=== PATIENT | male | born 1955 | race Caucasian/White ===

== ENCOUNTER 2018-11-22 06:00 | Day surgery (SDC) | payer MEDICARE ==
[~2018-11-22] VITALS: Ht 178 cm; Wt 97.1 kg
[~2018-11-22 06:00] MED LIST: ALPR1 PO; AMLO5; CLON1; CYAN1000I IM; CYCL10; CYCL10 PO; HYDCHL12.5; HYDCHL25 PO; Ketoconazole15 GM TOP; LIDO5TP TOP; METO100ER; METO100ER PO; MORP15ER PO; MORP30 PO; OXYACE10; PRED20 PO; PROM25 PO; SIMV40; VALS80
--- NOTE | 2018-11-22 08:50 | NUR ---
Patient up to Ambulate independently. Gait steady. Discharge instructions reviewed with patient. Patient verbalizes understanding. Copy given to patient to take home. Patient States Post-Procedure ride home has been arranged. Discharged via wheelchair to private car for ride home.
== END 2018-11-22 23:21 | disposition home or self-care (01) ==
LOC: ORSCMMR 06:00 → ORD 07:30 → ORSCMMR 07:30 → ORD 14:15 → ORSCMMR 14:15
PROVIDERS: Orthopaedic Surgery
PROC: 0LN80ZZ Release Left Hand Tendon, Open Approach (ICD-10-PCS; principal; 2018-11-22 07:30)
DX: M65.322 Trigger finger, left index finger (principal); I10 Essential (primary) hypertension; E78.5 Hyperlipidemia, unspecified; G47.33 Obstructive sleep apnea (adult) (pediatric); Z79.899 Other long term (current) drug therapy; Z87.891 Personal history of nicotine dependence
CPT/HCPCS: J2250; J2704; J3010; J7120

== ENCOUNTER 2018-11-30 11:53 | Emergency (ER) | payer MEDICARE ==
[~2018-11-30] VITALS: Ht 172.7 cm; Wt 97.1 kg
[2018-11-30 13:06] LABS: BASOPHILS ABSOLUTE AUTO 0.04 K/mm3 (0.00-0.23); BASOPHILS PERCENT AUTO 0 % (0-2); EOSINOPHILS PERCENT AUTO 2 % (0-6); Hematocrit 53.9 % (37.0-53.0); Hemoglobin 17.9 g/dL (13.5-17.5); IMMATURE GRAN ABSOLUTE AUTO 0.03 K/mm3 (0.00-0.10); IMMATURE GRAN PERCENT AUTO 0 % (0-1); LYMPHOCYTES ABSOLUTE AUTO 1.87 K/mm3 (0.84-5.20); LYMPHOCYTES PERCENT AUTO 16 % (21-46); MONOCYTES ABSOLUTE AUTO 0.84 K/mm3 (0.16-1.47); MONOCYTES PERCENT AUTO 7 % (4-13); Mean Corpuscular HGB 31.9 pg (26.0-34.0); Mean Corpuscular HGB Conc 33.2 g/dL (31.5-36.5); Mean Corpuscular Volume 96 fL (80-100); Mean Platelet Volume 9.7 fL (9.1-12.4); NEUTROPHILS ABSOLUTE AUTO 8.78 K/mm3 (1.96-9.15); NEUTROPHILS PERCENT AUTO 75 % (41-73); Platelet Count 237 K/mm3 (150-400); RDW Coefficient Variation 11.6 % (11.7-14.2); RDW Standard Deviation 41.7 fL (35.1-46.3); Red Blood Cell Count 5.61 M/mm3 (4.30-5.90); White Blood Cell Count 11.76 K/mm3 (4.00-11.30)
[2018-11-30 13:26] LABS: Alanine Aminotransfer (ALT/SGP 36 U/L (12-78); Albumin, Blood 4.1 g/dL (3.4-5.0); Alk Phos 103 U/L (50-136); Anion Gap 7 mmol/L (6-16); Aspartate Aminotrans (AST/SGOT 20 U/L (12-37); Bilirubin, Total 0.3 mg/dL (0.1-1.0); Blood Urea Nitrogen 8 mg/dL (8-24); Bun/Creatinine Ratio 7.7 (12.0-20.0); CO2, Blood 25 mmol/L (21-32); Calcium, Blood 9.5 mg/dL (8.5-10.1); Chloride, Blood 108 mmol/L (98-108); Creatinine, Blood 1.04 mg/dL (0.60-1.20); Globulin, Blood 4.2 g/dL (2.2-4.0); Glomerular Filtration Rate >60 (60-); Glucose, Blood 152 mg/dL (70-99); Potassium, Blood 3.8 mmol/L (3.5-5.5); Sodium, Blood 140 mmol/L (136-145); Total Protein, Blood 8.3 g/dL (6.4-8.2)
[2018-11-30 13:52] LABS: Source, Urine Clean Catch
[2018-11-30 14:05] LABS: Bilirubin, Urine Neg (Neg); Blood, Urine Neg (Neg); Glucose Qualitative, Urine Neg (Neg); Ketones, Urine Neg (Neg); Leukocyte Esterase, Urine Neg (Neg); Nitrite, Urine Neg (Neg); Protein, Urine Neg (Neg); Urobilinogen, Urine NORM (Normal)
[2018-11-30 14:48] LABS: Color, Urine Pale Yellow (P-Yellow)
[2018-11-30 14:49] LABS: Appearance, Urine Clear (Clear)
== END 2018-11-30 16:15 | disposition home or self-care (01) ==
LOC: ER 11:53
PROVIDERS: Physician Assistant
DX: R19.7 Diarrhea, unspecified (principal); R10.9 Unspecified abdominal pain; Z88.0 Allergy status to penicillin; Z79.899 Other long term (current) drug therapy; I10 Essential (primary) hypertension; Z87.891 Personal history of nicotine dependence
CPT/HCPCS: 74018; 80053; 81003; 83690; 85025; 99283-25

== ENCOUNTER 2019-01-07 13:55 | Day surgery (SDC) | payer MEDICARE ==
[~2019-01-07] VITALS: Ht 175.3 cm; Wt 96.6 kg
== END 2019-01-07 17:46 | disposition home or self-care (01) ==
LOC: ORSCSDS 13:55
PROVIDERS: Student in an Organized Health Care Education/Training Program
PROC: 0DBK8ZX Excision of Ascending Colon, Via Natural or Artificial Opening Endoscopic, Diagnostic (ICD-10-PCS; principal; 2019-01-07 15:15)
PROC: 0DBH8ZX Excision of Cecum, Via Natural or Artificial Opening Endoscopic, Diagnostic (ICD-10-PCS; principal; 2019-01-07 15:15)
DX: R15.0 Incomplete defecation (principal); R10.32 Left lower quadrant pain; D12.2 Benign neoplasm of ascending colon; D12.0 Benign neoplasm of cecum; K64.8 Other hemorrhoids; K64.4 Residual hemorrhoidal skin tags; I10 Essential (primary) hypertension; G47.33 Obstructive sleep apnea (adult) (pediatric); Z87.891 Personal history of nicotine dependence; K21.9 Gastro-esophageal reflux disease without esophagitis; Z79.899 Other long term (current) drug therapy
CPT/HCPCS: 88305; J2405; J2704; J7120

== ENCOUNTER 2021-11-26 08:57 | Day surgery (SDC) | payer MEDICARE ==
[~2021-11-26] VITALS: Ht 177.8 cm; Wt 91.8 kg
[2021-11-26] MEDS ORDERED: MORP15ER (09:37)
--- NOTE | 2021-11-26 11:00 | NUR ---
11/26/21 1100 Dusty Doan 0.15MG EPI ADDED TO 30 ML'S OF 0.5% BUPIVACAINE TO ACHIEVE SOLUTION OF 1:200,000. 8 ML'S INJ AT LEFT LONG FINGER AND 8 ML'S INJ AT RIGHT LONG FINGER BY [place].CTS AT 1050.
--- NOTE | 2021-11-26 11:47 | NUR ---
11/26/21 1147 REILLY LITTLEJOHN PT HAS A RX FOR NORCO. HE STATES THAT HE HAS PAIN MEDS AT HOME SO WON'T BE FILLING THIS RX.
== END 2021-11-26 11:50 | disposition home or self-care (01) ==
LOC: ORSCSDS 08:57
PROVIDERS: Orthopaedic Surgery
PROC: 0LN80ZZ Release Left Hand Tendon, Open Approach (ICD-10-PCS; principal; 2021-11-26 10:15)
PROC: 0LN70ZZ Release Right Hand Tendon, Open Approach (ICD-10-PCS; principal; 2021-11-26 10:15)
DX: M65.332 Trigger finger, left middle finger (principal); M65.331 Trigger finger, right middle finger; I10 Essential (primary) hypertension; E66.9 Obesity, unspecified; Z68.30 Body mass index [BMI] 30.0-30.9, adult; Z79.899 Other long term (current) drug therapy
CPT/HCPCS: J0171; J0690; J2250; J2704; J3010